=== PATIENT | male | born 1965 ===

== ENCOUNTER → 2021-06-12 13:47 | Outpatient (BNVA) | payer MEDICAID, SELFPAY | PROVIDERS: PCP Nurse Practitioner Family | DX: R32 Unspecified urinary incontinence (principal) | CPT/HCPCS: 99202 ==

== ENCOUNTER → 2021-07-24 12:16 | Outpatient (BNVA) | payer MEDICAID, SELFPAY | PROVIDERS: PCP Nurse Practitioner Family | DX: Z13.89 Encounter for screening for other disorder (principal) ==

== ENCOUNTER 2022-08-06 15:12 | Inpatient (IN) | payer MEDICAID, SELFPAY ==
--- NOTE | ~2022-08-06 | XR_ITS ---
EXAMINATION: XR CHEST CLINICAL INFORMATION: Fever COMPARISON: None available. TECHNIQUE: Frontal view of the chest was obtained. FINDINGS: The lungs are expanded with no acute consolidation pleural effusion. Heart size is enlarged with increased bilateral parahilar markings question mild congestion versus interstitial pneumonitis. No gross bony abnormality.. XR/XR chest 1V IMPRESSION: Mild cardiomegaly with increased bilateral parahilar interstitial markings question pneumonitis versus mild congestion. No acute consolidation seen.
--- NOTE | ~2022-08-06 | US_ITS ---
EXAMINATION: US SCROTUM CLINICAL INFORMATION: Abscess left side of scrotum. COMPARISON: None available. TECHNIQUE: A sonogram of the scrotum was performed assessing solis-scale appearance and color Doppler flow. Spectral Doppler analysis of the arterial and venous flow were performed in the testes bilaterally. FINDINGS: Scrotal wall on the left is thickened with 1.2 x 0.4 x 1.3 cm hypoechoic area seen in the scrotal wall a few millimeters below the skin surface. RIGHT: Right testicle measures 5.0 x 2.3 x 4.2 cm, volume 25 mL. Testis is very heterogeneous in echotexture but no discrete focal mass is seen. Spectral Doppler analysis of the arterial and venous flow is normal in the right testis. Right epididymal head is normal in size. The epididymal body is not well seen. No right hydrocele or varicocele is seen. Right epididymal Doppler flow is normal. LEFT: Left testicle measures 3.7 x 2.3 x 3.3 cm, volume 15 mL. The testis is very heterogeneous and echotexture but no discrete focal mass is seen. Spectral Doppler analysis of the arterial and venous flow is normal in the left testis. Left epididymal head is normal in size. Small cysts are present in the head of the left epididymis. The epididymal tail was not well seen. No left hydrocele or varicocele is seen. Left epididymal Doppler flow is normal. US/US scrotum IMPRESSION: 1. The testes are very heterogeneous in echotexture but no discrete mass is seen and they do not appear hyperemic. 2. The left scrotal wall is thickened with a 1.2 x 0.4 x 1.3 cm hypoechoic area in the scrotal wall. Given the history of an abscess, this certainly would be compatible with that diagnosis.
[2022-08-06 15:26] VITALS: BP 140/60; BP 142/64; PULSE 90; PULSE 94; RESP 19; TEMP 39.2; O2SAT 98; BMI 75.3
--- NOTE | 2022-08-06 16:13 | ED.GENADULT ---
HPI - General Adult General Chief complaint: Fever Stated complaint: CHRONIC CELLULITIS ABSCESS TO SCROTUM Time Seen by Provider: 08/06/22 15:58 Source: patient Mode of arrival: EMS Limitations: no limitations History of Present Illness HPI narrative: Patient comes to the emergency room by ambulance complaining of cellulitis in the right thigh an abscess on the scrotum on the left side. Patient states that he has had cellulitis multiple times in the thigh. Patient Usually goes to [facility]. Patient states that 2 days ago his right thigh started becoming erythematous, but was new to him, now he has an abscess on the scrotum which has never happened before. Patient complaining of severe pain, fever and chills. Related Data Home Medications Medication Instructions Recorded Confirmed atorvastatin 40 mg tablet 40 mg PO DAILY 06/12/21 08/06/22 clindamycin phosphate 1 % topical 1 appl topical DAILY 06/12/21 08/06/22 solution doxazosin 4 mg tablet 4 mg PO DAILY 06/12/21 08/06/22 furosemide 40 mg tablet 40 mg PO BID 06/12/21 08/06/22 gabapentin 800 mg tablet 800 mg PO TID 06/12/21 08/06/22 ipratropium 20 mcg-albuterol 100 1 puff PO QID wheezing 06/12/21 08/06/22 mcg/actuation mist for inhalation (Combivent Respimat) lisinopril 40 mg tablet 40 mg PO DAILY 06/12/21 08/06/22 tamsulosin 0.4 mg capsule 0.4 mg PO DAILY 06/12/21 08/06/22 amlodipine 10 mg tablet 10 mg PO DAILY 07/24/21 08/06/22 clonidine HCl 0.1 mg tablet 0.1 mg PO BID 07/24/21 08/06/22 ferrous sulfate 325 mg (65 mg 325 mg PO DAILY 07/24/21 08/06/22 iron) tablet (FeroSul) omeprazole 20 mg capsule,delayed 20 mg PO BID 07/24/21 08/06/22 release albuterol sulfate 2.5 mg/3 mL 2.5 mg inhalation TID 08/06/22 08/06/22 (0.083 %) solution for nebulization ammonium lactate 12 % topical cream 1 appl topical BID 08/06/22 08/06/22 cyanocobalamin (vitamin B-12) 1,000 mcg PO DAILY 08/06/22 08/06/22 1,000 mcg tablet ergocalciferol (vitamin D2) 1,250 1,250 mcg PO MO 08/06/22 08/06/22 mcg (50,000 unit) capsule levofloxacin 750 mg tablet 750 mg PO DAILY 08/06/22 08/06/22 oxycodone 10 mg tablet,crush 10 mg PO BID 08/06/22 08/06/22 resistant,extended release 12 hr (OxyContin) Previous Rx's Medication Instructions Recorded solifenacin 10 mg tablet (Vesicare) 10 mg PO DAILY #90 tabs 04/25/22 pyridoxine (vitamin B6) 50 mg 50 mg PO DAILY 30 days #30 tabs 06/25/22 tablet Allergies Allergy/AdvReac Type Severity Reaction Status Date / Time aspartame AdvReac Headache Verified 08/06/22 15:53 Review of Systems Review of Systems: Constitutional : No Weight loss, No Fever, No Chills, No Night Sweats, No Fatigue, No Malaise ENT/Mouth : No Hearing loss, No Ear Pain, No Nasal Congestion, No Sinus Pain, No Hoarseness, No sore throat, No Rhinorrhea, No Swallowing Difficulty Eyes: No Eye Pain, No Swelling, No Redness, No Foreign Body, No Discharge, No Vision Changes Cardiovascular : No Chest Pain, No SOB, No Dyspnea on Exertion, No Orthopnea, No Edema, No Palpitations Respiratory : No Cough, No Sputum, No Wheezing, No Smoke Exposure, No Dyspnea Gastrointestinal : No Nausea, No Vomiting, No Diarrhea, No Constipation, No abdominal Pain, No Hematochezia, No Melena Genitourinary : Patient complaining of a scrotal abscess, No Dysuria, No Urinary Frequency, No Hematuria, No Urinary Incontinence, No Urgency, No Flank Pain, No Urinary Flow Changes, No Hesitancy Musculoskeletal : No joint pain, No Myalgias, No Joint Swelling Skin : Complaining of right thigh cellulitis and left scrotal abscess Neuro : No Weakness, No Numbness, No Paresthesias, No Loss of Consciousness, No Dizziness, No Headache Psych : No Anxiety/Panic, No Depression, No SI/HI/AH/VH, No Social Issues, Heme/Lymph: No Bruising, No Bleeding,No Lymphadenopathy Endocrine : No Polyuria, No Polydipsia, No Temperature Intolerance [facility] Past Medical History Medical History (Updated 08/06/22 @ 16:29 by Lizzy Duarte MD) Frequency of urination and polyuria Morbid obesity Renal calculi Renal calculi Urinary incontinence Social History Social History Alcohol intake: never Smoked in Last 30 Days: No Use of substances other than those prescribed or required for medical reasons: No Advance Directives: Yes Advance Directives Information Provided: No Advance Directives on File: No Physical Exam ED Vital Signs: Vital Signs - 24 hr 08/06/22 15:26 08/06/22 17:19 08/06/22 18:26 Temperature 102.6 F H 101.4 F H 100 F Pulse Rate 94 88 Respiratory Rate 19 20 Blood Pressure 140/60 H 120/50 L Pulse Oximetry 98 95 Oxygen Delivery Method Nasal Cannula High Flow Nasal Cannula Oxygen Flow Rate 2 BMI result Body Mass Index 75.3 Const Other: Appearance: Alert. Oriented X3. No acute distress. Morbidly obese Eyes: Pupils equal, round and reactive to light. ENT: Pharynx normal. Neck: Normal inspection. Neck supple. No lymph nodes noted. No crepitus CVS: Normal heart rate and rhythm. Pulses normal. Normal S1 and S2 Respiratory: No respiratory distress. Breath sounds normal. No Wheezing. No rales Abdomen: Soft and nontender. No rigidity. No distention. Skin: Skin warm and dry. Normal skin color. Normal skin turgor. Right thigh is warm to touch, erythematous, extends to the inner thigh to the scrotum, there is an abscess with scant drainage on the left of the scrotum Extremities: No lower extremity edema. No Lacerations. No Rash Neuro: Oriented X 3. No motor deficit. No sensory deficit. Moving all extremities. No slurred speech. CN 2 through 12 grossly intact Psych: calm, cooperative, normal affect Medications Administered Generic Name Dose Route Start Last Admin Trade Name Freq PRN Reason Stop Dose Admin Morphine Sulfate 4 mg 08/06/22 20:24 08/06/22 20:52 Morphine Sulfate 4 Mg/Ml Cartridge IVPUSH 4 mg Q4H PRN Administration Pain, Severe (Pain Scale 7-10) Protocol Discontinued Medications Generic Name Dose Route Start Last Admin Trade Name Freq PRN Reason Stop Dose Admin Acetaminophen 975 mg 06/13/23 16:16 08/06/22 16:56 Acetaminophen 325 Mg Tablet PO 08/06/22 16:17 975 mg ONCE ONE Administration Hydromorphone HCl 1 mg 08/06/22 16:16 08/06/22 16:58 Hydromorphone Hcl 1 Mg/Ml Syringe IVPUSH 08/06/22 16:17 1 mg ONCE ONE Administration Protocol Sodium Chloride 1,000 mls @ 999 mls/hr 08/06/22 16:00 08/06/22 17:55 Ns IV 08/06/22 17:00 Infused .Q1H1M MARY ANN Infusion Sodium Chloride 3,000 mls @ 999 mls/hr 08/06/22 16:08 08/06/22 19:41 Ns IVCONT 08/06/22 19:08 Infused .Q3H1M ONE Infusion Piperacillin Sod/Tazobactam 50 mls @ 100 mls/hr 08/06/22 16:08 08/06/22 17:32 Sod 3.375 gm/ Sodium Chloride IV 08/06/22 16:37 Infused ONCE ONE Infusion Vancomycin HCl 2,000 mg in 500 mls @ 250 mls/hr 08/06/22 16:08 08/06/22 19:43 Vancomycin/Ns IV 08/06/22 18:07 Infused ONCE ONE Infusion Medical Decision Making Medical Decision Making MDM Narrative: -on arrival, it was noted that patient has fever 102.6, came in complaining of cellulitis and scrotal abscess. Patient was started empirically on IV fluids, 3 L, based on an ideal weight of 73 kg, patient is morbidly obese, also started on IV vancomycin and Zosyn. -All of patient's labs are pending. -parker's gangrene not suspected -ultrasound of the scrotum pending. We cannot obtain a CT scan, patient's way is above the maximum limit for CT scan -white blood cell count within normal limits, ultrasound of the scrotum shows a 1.2 x 0.4 x 1.3 cm hypoechoic area in the scrotal wall, could be an abscess. -Dr. White from Urology aware, will consult in the morning -I discussed the patient with Dr. Resendez, pt being admitted Admission/Observation Consideration of admission/observation: Escalation of care including admission/observation considered Consult Healthcare Provider Management of the patient was discussed with: Hospitalist and [place] Lab Data MDM Lab Attestation statement: I reviewed the patient's lab results. 08/06/22 16:31 08/06/22 16:22 Labs: Lab Results 08/06/22 08/06/22 08/06/22 Range/Units 16:21 16:21 16:22 WBC (4.8-10.8) X10*3/uL RBC (4.60-5.80) X10*6/uL Hgb (14.0-18.0) g/dl Hct (42.0-52.0) % MCV (80.0-98.0) fL MCH (27.0-33.0) pg MCHC (31.0-36.0) g/dl RDW (11.0-16.0) % Plt Count (160-400) X10*3/uL MPV (9.4-12.4) fL Immature Gran % (Auto) (0.0-0.4) % Neut % (Auto) (45-73) % Lymph % (Auto) (20-40) % [place] % (Auto) (2-11) % Eos % (Auto) (0-4) % Baso % (Auto) (0-2) % Lymph # (Auto) (1.2-4.9) X10*3/uL [place] # (Auto) (0.1-1.2) X10*3/uL Eos # (Auto) (0.0-0.4) X10*3/uL Baso # (Auto) (0.0-0.2) X10*3/uL Abs Immat Gran (auto) (0.00-0.03) X10*3/uL Absolute Neuts (auto) (2.0-8.3) x10*3/uL Absolute Nucleated RBC (0.0-0.012) X10*3/uL Nucleated RBC % (auto) (0.0-0.2) /100WBC Smear Tech's Comments PT (10.0-13.1) SEC INR (0.9-1.1) VBG pH (7.32-7.43) VBG pCO2 mmHg VBG pO2 mmHg VBG HCO3 (22-26) mmol/L VBG O2 Saturation % VBG Base Excess mmol/L Sodium 137 (135-145) mmol/L Potassium 4.0 (3.3-5.1) mmol/L Chloride 104 (96-108) mmol/L Carbon Dioxide 21 L (22-29) mmol/L Anion Gap 16 (12-20) BUN 15 (9-16) mg/dL Creatinine 1.08 (0.5-1.4) mg/dL Estim Creat Clear Calc 146.6 Estimated GFR > 60 Random Glucose 99 (60-115) mg/dL Lactic Acid 1.5 (0.5-2.0) mmol/L Calcium 9.2 (8.4-10.2) mg/dL Total Bilirubin 1.4 H (0.0-1.0) mg/dL Direct Bilirubin 0.7 H (0.0-0.5) mg/dL AST 22 (5-37) U/L ALT 16 (0-40) U/L Alkaline Phosphatase 170 H (39-117) U/L B-Natriuretic Peptide 72 (<100) pg/mL Total Protein 7.3 (6.5-8.0) g/dL Albumin 3.8 (3.5-5.0) g/dL Urine Color Urine Appearance Urine pH (5.0-9.0) Ur Specific [place] (1.005-1.025) Urine Protein (Neg-Trace) mg/dL Urine Glucose (UA) (Negative) mg/dL Urine Ketones (Negative) mg/dL Urine Blood (Negative) Urine Nitrite (Negative) Ur Leukocyte Esterase (Negative) Urine RBC (0-2) /HPF Urine WBC (0-5) /HPF Ur Squamous Epith Cells (0-2) /HPF Urine Bacteria (None Seen) Hyaline Casts (0-2) /LPF 08/06/22 08/06/22 08/06/22 Range/Units 16:22 16:31 16:38 WBC 9.3 (4.8-10.8) X10*3/uL RBC 3.80 L (4.60-5.80) X10*6/uL Hgb 10.6 L (14.0-18.0) g/dl Hct 33.4 L (42.0-52.0) % MCV 87.9 (80.0-98.0) fL MCH 27.9 (27.0-33.0) pg MCHC 31.7 (31.0-36.0) g/dl RDW 14.9 (11.0-16.0) % Plt Count 194 (160-400) X10*3/uL MPV 9.1 L (9.4-12.4) fL Immature Gran % (Auto) 0.4 (0.0-0.4) % Neut % (Auto) 94.6 H (45-73) % Lymph % (Auto) 2.6 L (20-40) % [place] % (Auto) 2.2 (2-11) % Eos % (Auto) 0.1 (0-4) % Baso % (Auto) 0.1 (0-2) % Lymph # (Auto) 0.2 L (1.2-4.9) X10*3/uL [place] # (Auto) 0.2 (0.1-1.2) X10*3/uL Eos # (Auto) 0.0 (0.0-0.4) X10*3/uL Baso # (Auto) 0.0 (0.0-0.2) X10*3/uL Abs Immat Gran (auto) 0.04 H (0.00-0.03) X10*3/uL Absolute Neuts (auto) 8.8 H (2.0-8.3) x10*3/uL Absolute Nucleated RBC 0.000 (0.0-0.012) X10*3/uL Nucleated RBC % (auto) 0.0 (0.0-0.2) /100WBC Smear Tech's Comments VERIFIED PT 13.3 H (10.0-13.1) SEC INR 1.2 H (0.9-1.1) VBG pH 7.42 (7.32-7.43) VBG pCO2 44 mmHg VBG pO2 43 mmHg VBG HCO3 29 H (22-26) mmol/L VBG O2 Saturation 71.0 % VBG Base Excess 4.5 mmol/L Sodium (135-145) mmol/L Potassium (3.3-5.1) mmol/L Chloride (96-108) mmol/L Carbon Dioxide (22-29) mmol/L Anion Gap (12-20) BUN (9-16) mg/dL Creatinine (0.5-1.4) mg/dL Estim Creat Clear Calc Estimated GFR Random Glucose (60-115) mg/dL Lactic Acid (0.5-2.0) mmol/L Calcium (8.4-10.2) mg/dL Total Bilirubin (0.0-1.0) mg/dL Direct Bilirubin (0.0-0.5) mg/dL AST (5-37) U/L ALT (0-40) U/L Alkaline Phosphatase (39-117) U/L B-Natriuretic Peptide (<100) pg/mL Total Protein (6.5-8.0) g/dL Albumin (3.5-5.0) g/dL Urine Color Urine Appearance Urine pH (5.0-9.0) Ur Specific [place] (1.005-1.025) Urine Protein (Neg-Trace) mg/dL Urine Glucose (UA) (Negative) mg/dL Urine Ketones (Negative) mg/dL Urine Blood (Negative) Urine Nitrite (Negative) Ur Leukocyte Esterase (Negative) Urine RBC (0-2) /HPF Urine WBC (0-5) /HPF Ur Squamous Epith Cells (0-2) /HPF Urine Bacteria (None Seen) Hyaline Casts (0-2) /LPF 08/06/22 Range/Units Unknown WBC (4.8-10.8) X10*3/uL RBC (4.60-5.80) X10*6/uL Hgb (14.0-18.0) g/dl Hct (42.0-52.0) % MCV (80.0-98.0) fL MCH (27.0-33.0) pg MCHC (31.0-36.0) g/dl RDW (11.0-16.0) % Plt Count (160-400) X10*3/uL MPV (9.4-12.4) fL Immature Gran % (Auto) (0.0-0.4) % Neut % (Auto) (45-73) % Lymph % (Auto) (20-40) % [place] % (Auto) (2-11) % Eos % (Auto) (0-4) % Baso % (Auto) (0-2) % Lymph # (Auto) (1.2-4.9) X10*3/uL [place] # (Auto) (0.1-1.2) X10*3/uL Eos # (Auto) (0.0-0.4) X10*3/uL Baso # (Auto) (0.0-0.2) X10*3/uL Abs Immat Gran (auto) (0.00-0.03) X10*3/uL Absolute Neuts (auto) (2.0-8.3) x10*3/uL Absolute Nucleated RBC (0.0-0.012) X10*3/uL Nucleated RBC % (auto) (0.0-0.2) /100WBC Smear Tech's Comments PT (10.0-13.1) SEC INR (0.9-1.1) VBG pH (7.32-7.43) VBG pCO2 mmHg VBG pO2 mmHg VBG HCO3 (22-26) mmol/L VBG O2 Saturation % VBG Base Excess mmol/L Sodium (135-145) mmol/L Potassium (3.3-5.1) mmol/L Chloride (96-108) mmol/L Carbon Dioxide (22-29) mmol/L Anion Gap (12-20) BUN (9-16) mg/dL Creatinine (0.5-1.4) mg/dL Estim Creat Clear Calc Estimated GFR Random Glucose (60-115) mg/dL Lactic Acid (0.5-2.0) mmol/L Calcium (8.4-10.2) mg/dL Total Bilirubin (0.0-1.0) mg/dL Direct Bilirubin (0.0-0.5) mg/dL AST (5-37) U/L ALT (0-40) U/L Alkaline Phosphatase (39-117) U/L B-Natriuretic Peptide (<100) pg/mL Total Protein (6.5-8.0) g/dL Albumin (3.5-5.0) g/dL Urine Color Yellow Urine Appearance Clear Urine pH 5.5 (5.0-9.0) Ur Specific [place] 1.015 (1.005-1.025) Urine Protein Trace (Neg-Trace) mg/dL Urine Glucose (UA) Negative (Negative) mg/dL Urine Ketones Negative (Negative) mg/dL Urine Blood Negative (Negative) Urine Nitrite Negative (Negative) Ur Leukocyte Esterase Moderate (2+) H (Negative) Urine RBC 0-2 (0-2) /HPF Urine WBC 0-5 (0-5) /HPF Ur Squamous Epith Cells 0-2 (0-2) /HPF Urine Bacteria None Seen (None Seen) Hyaline Casts 0-2 (0-2) /LPF Radiology Impression Discussion of test interpretation with radiology: I have reviewed the radiologist's reading. Radiologist Impression: RIGHT: Right testicle measures 5.0 x 2.3 x 4.2 cm, volume 25 mL. Testis is very heterogeneous in echotexture but no discrete focal mass is seen. Spectral Doppler analysis of the arterial and venous flow is normal in the right testis. Right epididymal head is normal in size. The epididymal body is not well seen. No right hydrocele or varicocele is seen. Right epididymal Doppler flow is normal. LEFT: Left testicle measures 3.7 x 2.3 x 3.3 cm, volume 15 mL. The testis is very heterogeneous and echotexture but no discrete focal mass is seen. Spectral Doppler analysis of the arterial and venous flow is normal in the left testis. Left epididymal head is normal in size. Small cysts are present in the head of the left epididymis. The epididymal tail was not well seen. No left hydrocele or varicocele is seen. Left epididymal Doppler flow is normal. US/US scrotum IMPRESSION: 1.? The testes are very heterogeneous in echotexture but no discrete mass is seen and they do not appear hyperemic. 2.? The left scrotal wall is thickened with a 1.2 x 0.4 x 1.3 cm hypoechoic area in the scrotal wall. Given the history of an abscess, this certainly would be compatible with that diagnosis. ? Critical Care Time Critical Care Time Critical Care Time: Yes Total Critical Care Time: 60 Attestation: I have personally provided critical care time. Time includes review of lab data, radiology results, discussion with consultants, and monitoring for potential decompensation. Intervention performed as documented. Discharge Plan Discharge Clinical Impression: Cellulitis, Scrotal abscess Patient Disposition: Admitted As Inpatient
[2022-08-06 16:38] LABS: Appearance Urine Clear; Color Urine Yellow; Glucose Urine UA Negative (Negative); Leukocyte Esterase Urine Moderate (2+) (Negative); Nitrite Urine Negative (Negative); PH 5.5 (5.0-9.0); Specific Gravity - Urine 1.015 (1.005-1.025); UMIC TRIGGER UACC YES; Urine Blood Negative (Negative); Urine Ketones Negative (Negative); Urine Protein Trace mg/dL (Neg-Trace)
[2022-08-06 16:42] LABS: Basophils Percent Auto 0.1 % (0-2); Eosinophils Percent Auto 0.1 % (0-4); Hematocrit 33.4 % (42.0-52.0); Hemoglobin 10.6 g/dl (14.0-18.0); Imm Gran Abs Auto 0.04 X10*3/uL (0.00-0.03); Imm Gran Pct Auto 0.4 % (0.0-0.4); Lymphocytes Absolute Auto 0.2 X10*3/uL (1.2-4.9); Lymphocytes Percent Auto 2.6 % (20-40); MANUAL DIFF FLAG SCAN; Mean Corpuscular HGB Conc 31.7 g/dl (31.0-36.0); Mean Corpuscular Hemoglobin 27.9 pg (27.0-33.0); Mean Corpuscular Volume 87.9 fL (80.0-98.0); Mean Platelet Volume 9.1 fL (9.4-12.4); Monocytes Absolute Auto 0.2 X10*3/uL (0.1-1.2); Monocytes Percent Auto 2.2 % (2-11); Neutrophils Absolute Auto 8.8 x10*3/uL (2.0-8.3); Neutrophils Percent Auto 94.6 % (45-73); Platelet Count 194 X10*3/uL (160-400); Red Cell Distribution Width 14.9 % (11.0-16.0); SCAN SMEAR FLAG 1; White Blood Count 9.3 X10*3/uL (4.8-10.8)
[2022-08-06 16:44] LABS: Lactic Acid 1.5 mmol/L (0.5-2.0)
[2022-08-06 16:45] LABS: VBG Base Excess 4.5 mmol/L; VBG HCO3 29 mmol/L (22-26); VBG pCO2 44 mmHg; VBG pH 7.42 (7.32-7.43); VBG pO2 43 mmHg
[2022-08-06 16:45] LABS: Venous Blood Gas Refer to POC result
[2022-08-06 16:46] LABS: INTERNATIONAL NORM RATIO 1.2 (0.9-1.1); Prothrombin Time 13.3 SEC (10.0-13.1)
--- NOTE | 2022-08-06 16:46 | PHA.MEDREC ---
Pharmacy Consult ? Medication Reconciliation Pharmacy has completed the medication reconciliation.
[2022-08-06] MEDS: 0.9 % Sodium Chloride 3,000 ML 999 ML IVCONT (16:47)
[2022-08-06] MEDS: 0.9 % Sodium Chloride 1,000 ML 999 ML IV (16:47)
[2022-08-06 16:49] LABS: Alanine Aminotransferase 16 U/L (0-40); Albumin Level 3.8 g/dL (3.5-5.0); Alkaline Phosphatase 170 U/L (39-117); Anion Gap 16 (12-20); Aspartate Amino Transferase 22 U/L (5-37); Bilirubin Direct 0.7 mg/dL (0.0-0.5); Bilirubin Total 1.4 mg/dL (0.0-1.0); Blood Urea Nitrogen 15 mg/dL (9-16); Calcium 9.2 mg/dL (8.4-10.2); Carbon Dioxide 21 mmol/L (22-29); Chloride 104 mmol/L (96-108); Creatinine Clr Calc Pharmacy 146.6; Estimated Glomerular Filt Rate > 60; Glucose Random 99 mg/dL (60-115); Sodium 137 mmol/L (135-145); Total Protein 7.3 g/dL (6.5-8.0)
[2022-08-06 16:54] LABS: B Type Natriuretic Peptide 72 pg/mL (<100)
[2022-08-06] MEDS: Acetaminophen 325 MG TABLET 975 MG PO (16:56)
[2022-08-06] MEDS: HYDROmorphone HCl 1 MG/ML SYRINGE IVPUSH (16:58)
[2022-08-06] MEDS: Piperacillin Sodium/Tazobactam 3.375 GM in 0.9 % Sodium Chloride 50 ML IV (16:59)
[2022-08-06 17:05] LABS: SLIDE REVIEW VERIFIED
[2022-08-06 17:19] VITALS: BP 120/50; PULSE 88; RESP 20; TEMP 38.6; O2SAT 95
[2022-08-06] MEDS: vancomycin/NS 2,000 MG/500 ML PLAST..BAG 250 MG IV (17:31)
[2022-08-06 17:46] LABS: Bacteria Urine None Seen (None Seen); Hyaline Casts Urine 0-2 /LPF (0-2); RBC Urine 0-2 /HPF (0-2); Squamous Epithelial Cell Urine 0-2 /HPF (0-2); WBC Urine 0-5 /HPF (0-5)
--- NOTE | 2022-08-06 18:12 | PC.NURSE ---
Pt c/o pain to bilateral lower extremities, Pain medication administered via 20G to left hand. Pt c/o discomfort r/t bedding, Pt repositioned with positive effect.
[2022-08-06 18:26] VITALS: TEMP 37.7
--- NOTE | 2022-08-06 20:29 | P.HPHOSP_ITS ---
History of Present Illness Date of Service: 08/06/22 Chief Complaint: cellulitis 56-year-old male with past medical history of recurrent cellulitis, CVA per patient, urinary incontinence,hypertension, hyperlipidemia, morbid obesity, reports chronic cellulitis of the lower extremity presents the hospital with c omplaints of cellulitis of the right leg as well as abscess in his scrotum. Patient reports that he has been on chronic antibiotics, but about 5 days ago his antibiotics were stopped because of fear of developing resistance as well as it wasnt working . he reports that about a day ago he was taking a shower when he noticed a lump in his scrotum and today he started developing significant pain swelling and redness in his right leg and he knew he has cellulitis therefore came to the hospital. He describes the pain as 10/10, not tolerating it well, feeling significant fever, he has chills, diaphoretic. denies any chest pain, no shortness of breath, no abdominal pain diarrhea constipation, no urinary symptoms no other acute abnormality or complaint. On arrival to the ED patient found to have a fever of 102.6, otherwise stable Labs are significant for WBC count of 9.3, labs otherwise unremarkable, scrotum ultrasound showed left scrotal wall thickening with 1.2x0.4x1.3 cm hypoechoic area in the scrotal wall patient started on IV antibiotics will be admitted for further management Review of Systems Review of Systems: Yes all other systems are reviewed and are negative [facility] Medical History (Updated 08/07/22 @ 06:41 by Payal Resendez MD) Frequency of urination and polyuria Hypertension Morbid obesity Renal calculi Renal calculi Urinary incontinence Social History Alcohol intake: never Smoked in Last 30 Days: No Use of substances other than those prescribed or required for medical reasons: No Advance Directives: Yes Advance Directives Information Provided: No Advance Directives on File: No Meds Allergies Allergy/AdvReac Type Severity Reaction Status Date / Time aspartame AdvReac Headache Verified 08/06/22 15:53 Active Medications: Current Medications Pharmacy Consult (Consult Rx Perform Med Rec) 1 each MISCELLANE ONCE PRN PRN Reason: Consult order Home Medications Medication Instructions Recorded Confirmed Last Taken Type atorvastatin 40 mg tablet 40 mg PO DAILY 06/12/21 08/06/22 08/06/22 History clindamycin phosphate 1 % topical 1 appl topical DAILY 06/12/21 08/06/22 Unknown History solution doxazosin 4 mg tablet 4 mg PO DAILY 06/12/21 08/06/22 08/06/22 History furosemide 40 mg tablet 40 mg PO BID 06/12/21 08/06/22 08/06/22 History gabapentin 800 mg tablet 800 mg PO TID 06/12/21 08/06/22 08/06/22 History ipratropium 20 mcg-albuterol 100 1 puff PO QID wheezing 06/12/21 08/06/22 Unknown History mcg/actuation mist for inhalation (Combivent Respimat) lisinopril 40 mg tablet 40 mg PO DAILY 06/12/21 08/06/22 08/06/22 History tamsulosin 0.4 mg capsule 0.4 mg PO DAILY 06/12/21 08/06/22 08/06/22 History amlodipine 10 mg tablet 10 mg PO DAILY 07/24/21 08/06/22 08/06/22 History clonidine HCl 0.1 mg tablet 0.1 mg PO BID 07/24/21 08/06/22 08/06/22 History ferrous sulfate 325 mg (65 mg 325 mg PO DAILY 07/24/21 08/06/22 08/06/22 History iron) tablet (FeroSul) omeprazole 20 mg capsule,delayed 20 mg PO BID 07/24/21 08/06/22 08/06/22 History release albuterol sulfate 2.5 mg/3 mL 2.5 mg inhalation TID 08/06/22 08/06/22 08/06/22 History (0.083 %) solution for nebulization ammonium lactate 12 % topical cream 1 appl topical BID 08/06/22 08/06/22 08/06/22 History cyanocobalamin (vitamin B-12) 1,000 mcg PO DAILY 08/06/22 08/06/22 08/06/22 History 1,000 mcg tablet ergocalciferol (vitamin D2) 1,250 1,250 mcg PO MO 08/06/22 08/06/22 08/05/22 History mcg (50,000 unit) capsule levofloxacin 750 mg tablet 750 mg PO DAILY 08/06/22 08/06/22 08/06/22 History oxycodone 10 mg tablet,crush 10 mg PO BID 08/06/22 08/06/22 08/06/22 History resistant,extended release 12 hr (OxyContin) Physical Exam Vital Signs and Narrative: Vital Signs: Last Vital Signs Temp 100 F 08/06/22 18:26 Pulse 88 08/06/22 17:19 Resp 20 08/06/22 17:19 BP 120/50 L 08/06/22 17:19 Pulse Ox 95 08/06/22 17:19 O2 Del Method High Flow Nasal C annula 08/06/22 17:19 O2 Flow Rate 2 08/06/22 17:19 BMI result Body Mass Index 75.3 Const: Other: very difficult to conduct a complete exam as patient is morbidly obese General: cooperative and no acute distress Orientation/consciousness: patient oriented x3 Eyes: General: appearance normal, both eyes and all related structures Resp: Effort & Inspection: normal respiratory effort Cardio: Rate: regular rate Rhythm: regular rhythm GI: Palpation (GI): Soft to palpation Auscultation: normal bowel sounds Skin: General skin exam: no rashes or lesions noted Neuro: General: patient oriented x3 Cognition (Neuro): normal cognition Extrem: Other: right lower extremity, around the groin/ thigh region there is erythema, warmth, significant tenderness and minimal touch around the scrotum there is also erythema warmth, tenderness, as well as edema General: Yes normal to inspection and Yes no pedal edema Results Labs 08/06/22 16:31 08/06/22 16:22 Labs: Laboratory Results - last 24 hr 08/06/22 08/06/22 08/06/22 16:21 16:21 16:22 MCV MCH MCHC RDW Plt Count MPV Immature Gran % (Auto) Neut % (Auto) Lymph % (Auto) [place] % (Auto) Eos % (Auto) Baso % (Auto) Lymph # (Auto) [place] # (Auto) Eos # (Auto) Baso # (Auto) Abs Immat Gran (auto) Absolute Neuts (auto) Absolute Nucleated RBC Nucleated RBC % (auto) Smear Tech's Comments PT INR VBG pH VBG pCO2 VBG pO2 VBG HCO3 VBG O2 Saturation VBG Base Excess Anion Gap 16 Estim Creat Clear Calc 146.6 Estimated GFR > 60 Random Glucose 99 Lactic Acid 1.5 Calcium 9.2 Total Bilirubin 1.4 H Direct Bilirubin 0.7 H AST 22 ALT 16 Alkaline Phosphatase 170 H B-Natriuretic Peptide 72 Total Protein 7.3 Albumin 3.8 Urine Color Urine Appearance Urine pH Ur Specific [place] Urine Protein Urine Glucose (UA) Urine Ketones Urine Blood Urine Nitrite Ur Leukocyte Esterase Urine RBC Urine WBC Ur Squamous Epith Cells Urine Bacteria Hyaline Casts 08/06/22 08/06/22 08/06/22 16:22 16:31 16:38 MCV 87.9 MCH 27.9 MCHC 31.7 RDW 14.9 Plt Count 194 MPV 9.1 L Immature Gran % (Auto) 0.4 Neut % (Auto) 94.6 H Lymph % (Auto) 2.6 L [place] % (Auto) 2.2 Eos % (Auto) 0.1 Baso % (Auto) 0.1 Lymph # (Auto) 0.2 L [place] # (Auto) 0.2 Eos # (Auto) 0.0 Baso # (Auto) 0.0 Abs Immat Gran (auto) 0.04 H Absolute Neuts (auto) 8.8 H Absolute Nucleated RBC 0.000 Nucleated RBC % (auto) 0.0 Smear Tech's Comments VERIFIED PT 13.3 H INR 1.2 H VBG pH 7.42 VBG pCO2 44 VBG pO2 43 VBG HCO3 29 H VBG O2 Saturation 71.0 VBG Base Excess 4.5 Anion Gap Estim Creat Clear Calc Estimated GFR Random Glucose Lactic Acid Calcium Total Bilirubin Direct Bilirubin AST ALT Alkaline Phosphatase B-Natriuretic Peptide Total Protein Albumin Urine Color Urine Appearance Urine pH Ur Specific [place] Urine Protein Urine Glucose (UA) Urine Ketones Urine Blood Urine Nitrite Ur Leukocyte Esterase Urine RBC Urine WBC Ur Squamous Epith Cells Urine Bacteria Hyaline Casts 08/06/22 Unknown MCV MCH MCHC RDW Plt Count MPV Immature Gran % (Auto) Neut % (Auto) Lymph % (Auto) [place] % (Auto) Eos % (Auto) Baso % (Auto) Lymph # (Auto) [place] # (Auto) Eos # (Auto) Baso # (Auto) Abs Immat Gran (auto) Absolute Neuts (auto) Absolute Nucleated RBC Nucleated RBC % (auto) Smear Tech's Comments PT INR VBG pH VBG pCO2 VBG pO2 VBG HCO3 VBG O2 Saturation VBG Base Excess Anion Gap Estim Creat Clear Calc Estimated GFR Random Glucose Lactic Acid Calcium Total Bilirubin Direct Bilirubin AST ALT Alkaline Phosphatase B-Natriuretic Peptide Total Protein Albumin Urine Color Yellow Urine Appearance Clear Urine pH 5.5 Ur Specific [place] 1.015 Urine Protein Trace Urine Glucose (UA) Negative Urine Ketones Negative Urine Blood Negative Urine Nitrite Negative Ur Leukocyte Esterase Moderate (2+) H Urine RBC 0-2 Urine WBC 0-5 Ur Squamous Epith Cells 0-2 Urine Bacteria None Seen Hyaline Casts 0-2 Imaging Radiologist's Impressions: Impressions Chest X-Ray 08/06/22 16:10 IMPRESSION: Mild cardiomegaly with increased bilateral parahilar interstitial markings question pneumonitis versus mild congestion. No acute consolidation seen. Scrotum Ultrasound 08/06/22 17:44 IMPRESSION: 1. The testes are very heterogeneous in echotexture but no discrete mass is seen and they do not appear hyperemic. 2. The left scrotal wall is thickened with a 1.2 x 0.4 x 1.3 cm hypoechoic area in the scrotal wall. Given the history of an abscess, this certainly would be compatible with that diagnosis. Assessment and Plan (1) Cellulitis of right lower extremity: Status: Acute (2) Scrotal abscess: Status: Acute Plan 57-year-old male past medical history of chronic cellulitis of right lower extremity, history of scrotal abscess presents the hospital with complaints of acute cellulitis in the same region # acute cellulitis of right lower extremity - will treat with IV antibiotics - follow cultures - infectious disease consult # scrotal abscess - will treat with IV antibiotics - urology consult # hypertension - stable - continue antihypertensives DVT prophylaxis: Heparin Time Spent With Patient Time: Total time managing care of this patient today ____ minutes. Quality Stroke Does the patient have a stroke diagnosis?: No VTE Prior VTE?: No VTE Risk Level:: Medical - moderate - high VTE Device Contraindication: Treatment Not Indicated VTE Drug Contraindication: N/A - Med Ordered
[2022-08-06] MEDS: Morphine Sulfate 4 MG/ML CARTRIDGE IVPUSH (20:52)
[2022-08-06 21:00] LABS: Appearance Urine Clear; Color Urine Dark Yellow; Glucose Urine UA Negative (Negative); Leukocyte Esterase Urine Small (1+) (Negative); Nitrite Urine Negative (Negative); PH 5.5 (5.0-9.0); Specific Gravity - Urine 1.025 (1.005-1.025); UMIC TRIGGER UACC YES; Urine Blood Negative (Negative); Urine Ketones Trace mg/dL (Negative); Urine Protein Trace mg/dL (Neg-Trace)
--- NOTE | 2022-08-06 21:10 | PHA.PROG ---
Admission Date/Time: Indication: Weight in k.136 kg Adjusted body weight in K.054 [place] body weight in K Obesity Dosing Indication % IBW: 75.3 Serum Creatinine - Last 168 Hours 08/06/22 16:22 Creatinine 1.08 Estimated CrCl and GFR - Last 168 Hours 08/06/22 16:22 Estim Creat Clear Calc 146.6 Estimated GFR > 60 Vancomycin Loading Dose: 2000 MG Current Vancomycin Dosing Regimen: 1250 Q12 Vancomycin Monitoring using AUC goal of 400 - 600 range with trough as surrogate marker: AUC 549 TROUGH 15.4 AFTER 4TH DOSE Date and Time for next Vancomycin Level to be drawn: CHECK RANDOM BEFORE 3RD DOSE 08/07/22 @1500 Pharmacist Comments on Vancomycin Plan: GIVEN PATIENT WEIGHT IT IS NOT CERTAIN THAT INSIGHT WILL ACCURATELY PREDICT LEVEL AND TO ENSURE SAFETY AND EFFICACY WE WILL CHECK LEVEL BEFORE 3RD DOSE AND CONTINUE DAILY MONITORING OF RENAL FUNCTION. RENAL FUNCTION GOOD AT THIS TIME. OBESE MODEL BEING USED IN INSIGHT MODEL. Vancomycin dosing will take advantage of [employer] as a clinical decision support tool that uses Bayesian modeling to calculate individual patient's pharmacokinetic parameters and forecast the patient's drug concentration time course with the target goal AUC 24 range of 400 - 600 mg/L/hr.
[2022-08-06 21:17] LABS: Bacteria Urine None Seen (None Seen); Hyaline Casts Urine 0-2 /LPF (0-2); RBC Urine 0-2 /HPF (0-2); UACC Culture Trigger YES; WBC Urine 0-5 /HPF (0-5)
[2022-08-06] MEDS: Heparin Sodium,Porcine 5,000 UNIT/ML VIAL 5000 UNIT SUBCUT (21:27)
[2022-08-06] MEDS: oxyCODONE HCl Immed Release 5 MG TABLET PO (21:30)
--- NOTE | 2022-08-06 21:36 | PC.NURSE ---
pt assessed, repositioned for comfort, medicated with pain medications to help with chronic pain
--- NOTE | 2022-08-06 22:27 | MHC.CM.PN ---
Pt sleeping soundly with CPAP. Unable to complete CM assessment. Will attempt when patient wakes.
[2022-08-06 22:41] VITALS: RESP 16
[2022-08-07] MEDS: Morphine Sulfate 4 MG/ML CARTRIDGE IVPUSH ×4 (01:17→21:18)
--- NOTE | 2022-08-07 01:21 | PC.NURSE ---
pt reported 10/10 pain, medicated with 4mg of morphine ivp
[2022-08-07 01:59] VITALS: BP 106/49; PULSE 59; RESP 17; TEMP 37.2; O2SAT 95
[2022-08-07] MEDS: Piperacillin Sodium/Tazobactam 3.375 GM in 0.9 % Sodium Chloride 50 ML IV ×4 (02:40→20:29)
[2022-08-07] MEDS: vancomycin HCL 1,250 MG in 0.9 % Sodium Chloride 250 ML 166.67 MG IV (04:39)
[2022-08-07] MEDS: oxyCODONE HCl Immed Release 5 MG TABLET PO ×2 (04:39→14:23)
[2022-08-07] MEDS: Heparin Sodium,Porcine 5,000 UNIT/ML VIAL 5000 UNIT SUBCUT ×2 (04:40→20:29)
[2022-08-07 05:52] VITALS: BP 99/48; PULSE 50; RESP 20; TEMP 37.2; O2SAT 98
[2022-08-07 06:31] LABS: MANUAL DIFF FLAG NO
[2022-08-07 07:00] LABS: Anion Gap 9 (12-20); Blood Urea Nitrogen 18 mg/dL (9-16); Calcium 8.3 mg/dL (8.4-10.2); Carbon Dioxide 24 mmol/L (22-29); Chloride 107 mmol/L (96-108); Creatinine Clr Calc Pharmacy 128.2; Estimated Glomerular Filt Rate > 60; Glucose Random 95 mg/dL (60-115); Potassium 4.4 mmol/L (3.3-5.1); Sodium 136 mmol/L (135-145)
[2022-08-07 07:10] LABS: Basophils Percent Auto 0.2 % (0-2); Eosinophils Absolute Auto 0.1 X10*3/uL (0.0-0.4); Eosinophils Percent Auto 0.7 % (0-4); Hematocrit 27.3 % (42.0-52.0); Hemoglobin 8.7 g/dl (14.0-18.0); Imm Gran Abs Auto 0.06 X10*3/uL (0.00-0.03); Imm Gran Pct Auto 0.6 % (0.0-0.4); Lymphocytes Absolute Auto 0.7 X10*3/uL (1.2-4.9); Lymphocytes Percent Auto 6.5 % (20-40); Mean Corpuscular HGB Conc 31.9 g/dl (31.0-36.0); Mean Corpuscular Hemoglobin 28.1 pg (27.0-33.0); Mean Corpuscular Volume 88.1 fL (80.0-98.0); Mean Platelet Volume 9.8 fL (9.4-12.4); Monocytes Absolute Auto 0.3 X10*3/uL (0.1-1.2); Monocytes Percent Auto 2.5 % (2-11); Neutrophils Absolute Auto 8.9 x10*3/uL (2.0-8.3); Neutrophils Percent Auto 89.5 % (45-73); Red Cell Distribution Width 15.1 % (11.0-16.0)
[2022-08-07 07:12] LABS: Platelet Count 115 X10*3/uL (160-400)
[2022-08-07] MEDS: Tolterodine Tartrate LA 4 MG CAP.ER.24H PO (08:55)
[2022-08-07] MEDS: Ferrous Sulfate 324 MG TABLET.DR PO (08:55)
[2022-08-07] MEDS: oxyCODONE HCl ER 10 MG TAB.ER.12H PO ×2 (08:56→20:28)
[2022-08-07] MEDS: Doxazosin Mesylate 2 MG TABLET 4 MG PO (08:57)
[2022-08-07] MEDS: Omeprazole 20 MG CAPSULE.DR PO ×2 (08:57→20:28)
[2022-08-07] MEDS: Pyridoxine HCl (Vitamin B6) 50 MG TABLET PO (08:57)
[2022-08-07] MEDS: Tamsulosin HCL 0.4 MG CAPSULE PO (08:57)
[2022-08-07] MEDS: Gabapentin 400 MG CAPSULE 800 MG PO ×3 (08:57→20:28)
[2022-08-07] MEDS: Cyanocobalamin (Vitamin B-12) 1,000 MCG TABLET 1000 MCG PO (08:57)
[2022-08-07] MEDS: 0.9 % Sodium Chloride Flush 3 ML SYRINGE IVFLUSH ×2 (08:57→20:30)
[2022-08-07] MEDS: Atorvastatin Calcium 40 MG TABLET PO (08:57)
[2022-08-07 09:08] VITALS: BP 134/61; PULSE 90; RESP 18; TEMP 36.4; O2SAT 95
--- NOTE | 2022-08-07 11:51 | MHC.CM.PN ---
pt lives alone has pce hrs morning and evening 7 days a week he will need amb ride home pcp is dr natty guy [place] pt has an electric w/c ,uses a walker and a cane
--- NOTE | 2022-08-07 12:51 | P.PNIM_ITS ---
Subjective Subjective Date of Service: 08/07/22 Interval History: cellulitis /sacrotal abcess Review of Systems fevers yesterday , no new episode today scrotal swellin/erythema present Physical Exam Vital Signs: Vital Signs: Last Vital Signs Temp 97.5 F 08/07/22 09:08 Pulse 90 08/07/22 09:08 Resp 18 08/07/22 09:08 BP 134/61 08/07/22 09:08 Pulse Ox 95 08/07/22 09:08 O2 Del Method Room Air 08/07/22 09:08 O2 Flow Rate 2 08/06/22 17:19 BMI result Body Mass Index 75.3 Appearance: Alert.? Oriented X3.? not in distress.? cvs: rrr, [id number] , no murmur res: clear to auscultation ,no rhonchii or wheezing abd: no rebound or guarding ,nt, bs present. ext : right lower extremity, around the groin/ thigh region there is erythema, warmth, significant tenderness and minimal touch ?around the scrotum there is also erythema warmth, tenderness, as well as edema. neuro: axo3 , nonfocal. Objective Data Active Medications Acetaminophen (Acetaminophen 325 Mg Tablet) 650 mg PO Q6H PRN PRN Reason: Pain, Mild (Pain Scale 1-3) Albuterol Sulfate (Albuterol Sulfate (0.083%) 2.5 Mg/3 Ml Vial.Neb) 2.5 mg INHALE TID [facility] Last Admin: 08/07/22 07:59 Dose: Not Given Documented By: NARENDRA Non-Admin Reason: Patient Refused Albuterol/Ipratropium (Albuterol/Iprat 2.5/0.5mg 3 Ml Ampul.Neb) 3 ml INHALE Q6H [facility] Last Admin: 08/07/22 07:59 Dose: Not Given Documented By: NARENDRA Non-Admin Reason: Patient Refused Atorvastatin Calcium (Atorvastatin Calcium 40 Mg Tablet) 40 mg PO DAILY [facility] Last Admin: 08/07/22 08:57 Dose: 40 mg Documented By: MAHI Cyanocobalamin (Cyanocobalamin (Vitamin B-12) 1,000 Mcg Tablet) 1,000 mcg PO DAILY [facility] Last Admin: 08/07/22 08:57 Dose: 1,000 mcg Documented By: MAHI Docusate Sodium (Docusate Sodium 100 Mg Capsule) 100 mg PO DAILY PRN PRN Reason: Constipation Doxazosin Mesylate (Doxazosin Mesylate 2 Mg Tablet) 4 mg PO DAILY [facility]; Protocol Last Admin: 08/07/22 08:57 Dose: 4 mg Documented By: MAHI Ergocalciferol (Ergocalciferol (Vitamin D2) 1,250 Mcg Capsule) 1,250 mcg PO MO [facility] Ferrous Sulfate (Ferrous Sulfate 324 Mg Tablet.) 324 mg PO DAILY [facility] Last Admin: 08/07/22 08:55 Dose: 324 mg Documented By: MAHI Gabapentin (Gabapentin 400 Mg Capsule) 800 mg PO TID [facility] Last Admin: 08/07/22 08:57 Dose: 800 mg Documented By: MAHI Heparin Sodium (Porcine) (Heparin Sodium,Porcine 5,000 Unit/Ml Vial) 5,000 unit SUBCUT Q8H [facility] Last Admin: 08/07/22 04:40 Dose: 5,000 unit Documented By: BECCA Piperacillin Sod/Tazobactam (Sod 3.375 gm/ Sodium Chloride) 50 mls @ 100 mls/hr IV Q6H [facility] Last Infusion: 08/07/22 09:56 Dose: 0 mls/hr Documented By: MAHI Vancomycin HCl 1,250 mg/ (Sodium Chloride) 250 mls @ 166.667 mls/hr IV Q12H [facility] Last Infusion: 08/07/22 06:27 Dose: 0 mls/hr Documented By: BECCA Lactic Acid (Ammonium Lactate 12 % Cream 140 Gm Tube) 1 appl TOPICAL BID [facility]; Protocol Morphine Sulfate (Morphine Sulfate 4 Mg/Ml Cartridge) 4 mg IVPUSH Q4H PRN; Protocol PRN Reason: Pain, Severe (Pain Scale 7-10) Last Admin: 08/07/22 09:56 Dose: 4 mg Documented By: MAHI Omeprazole (Omeprazole 20 Mg Capsule.) 20 mg PO BID [facility] Last Admin: 08/07/22 08:57 Dose: 20 mg Documented By: MAHI Ondansetron HCl (Ondansetron Hcl 4 Mg/2 Ml Vial) 4 mg IVPUSH Q8H PRN PRN Reason: Nausea and Vomiting Oxycodone HCl (Oxycodone Hcl Immed Release 5 Mg Tablet) 5 mg PO Q3H PRN PRN Reason: Pain, Moderate(Pain Scale 4-6) Last Admin: 08/07/22 04:39 Dose: 5 mg Documented By: BECCA Oxycodone HCl (Oxycodone Hcl Er 10 Mg Tab.Er.12h) 10 mg PO BID [facility] Last Admin: 08/07/22 08:56 Dose: 10 mg Documented By: MAHI Pharmacy Consult (Consult Rx Perform Med Rec) 1 each MISCELLANE ONCE PRN PRN Reason: Consult order Pharmacy Consult (Consult Rx Vancomycin Dosing) 1 each MISCELLANE DAILY PRN PRN Reason: Consult order Pyridoxine HCl (Pyridoxine Hcl (Vitamin B6) 50 Mg Tablet) 50 mg PO DAILY [facility] Last Admin: 08/07/22 08:57 Dose: 50 mg Documented By: MAHI Sodium Chloride (0.9 % Sodium Chloride Flush 3 Ml Syringe) 3 ml IVFLUSH QSHIFT [facility] Last Admin: 08/07/22 08:57 Dose: 3 ml Documented By: MAHI Tamsulosin HCl (Tamsulosin Hcl 0.4 Mg Capsule) 0.4 mg PO DAILY [facility] Last Admin: 08/07/22 08:57 Dose: 0.4 mg Documented By: MAHI Tolterodine Tartrate (Tolterodine Tartrate [place] 4 Mg Cap.Er.24h) 4 mg PO DAILY [facility] Last Admin: 08/07/22 08:55 Dose: 4 mg Documented By: MAHI Labs 08/07/22 06:26 08/07/22 06:26 Labs: Laboratory Results - last 24 hr 08/06/22 08/06/22 08/06/22 16:21 16:21 16:22 MCV MCH MCHC RDW Plt Count MPV Immature Gran % (Auto) Neut % (Auto) Lymph % (Auto) [place] % (Auto) Eos % (Auto) Baso % (Auto) Lymph # (Auto) [place] # (Auto) Eos # (Auto) Baso # (Auto) Abs Immat Gran (auto) Absolute Neuts (auto) Absolute Nucleated RBC Nucleated RBC % (auto) Smear Tech's Comments PT INR VBG pH VBG pCO2 VBG pO2 VBG HCO3 VBG O2 Saturation VBG Base Excess Anion Gap 16 Estim Creat Clear Calc 146.6 Estimated GFR > 60 Random Glucose 99 Lactic Acid 1.5 Calcium 9.2 Total Bilirubin 1.4 H Direct Bilirubin 0.7 H AST 22 ALT 16 Alkaline Phosphatase 170 H B-Natriuretic Peptide 72 Total Protein 7.3 Albumin 3.8 Urine Color Urine Appearance Urine pH Ur Specific [place] Urine Protein Urine Glucose (UA) Urine Ketones Urine Blood Urine Nitrite Ur Leukocyte Esterase Urine RBC Urine WBC Ur Squamous Epith Cells Urine Bacteria Hyaline Casts 08/06/22 08/06/22 08/06/22 16:22 16:31 16:38 MCV 87.9 MCH 27.9 MCHC 31.7 RDW 14.9 Plt Count 194 MPV 9.1 L Immature Gran % (Auto) 0.4 Neut % (Auto) 94.6 H Lymph % (Auto) 2.6 L [place] % (Auto) 2.2 Eos % (Auto) 0.1 Baso % (Auto) 0.1 Lymph # (Auto) 0.2 L [place] # (Auto) 0.2 Eos # (Auto) 0.0 Baso # (Auto) 0.0 Abs Immat Gran (auto) 0.04 H Absolute Neuts (auto) 8.8 H Absolute Nucleated RBC 0.000 Nucleated RBC % (auto) 0.0 Smear Tech's Comments VERIFIED PT 13.3 H INR 1.2 H VBG pH 7.42 VBG pCO2 44 VBG pO2 43 VBG HCO3 29 H VBG O2 Saturation 71.0 VBG Base Excess 4.5 Anion Gap Estim Creat Clear Calc Estimated GFR Random Glucose Lactic Acid Calcium Total Bilirubin Direct Bilirubin AST ALT Alkaline Phosphatase B-Natriuretic Peptide Total Protein Albumin Urine Color Urine Appearance Urine pH Ur Specific [place] Urine Protein Urine Glucose (UA) Urine Ketones Urine Blood Urine Nitrite Ur Leukocyte Esterase Urine RBC Urine WBC Ur Squamous Epith Cells Urine Bacteria Hyaline Casts 08/06/22 08/06/22 08/07/22 20:33 Unknown 06:26 MCV MCH MCHC RDW Plt Count MPV Immature Gran % (Auto) Neut % (Auto) Lymph % (Auto) [place] % (Auto) Eos % (Auto) Baso % (Auto) Lymph # (Auto) [place] # (Auto) Eos # (Auto) Baso # (Auto) Abs Immat Gran (auto) Absolute Neuts (auto) Absolute Nucleated RBC Nucleated RBC % (auto) Smear Tech's Comments PT INR VBG pH VBG pCO2 VBG pO2 VBG HCO3 VBG O2 Saturation VBG Base Excess Anion Gap 9 L Estim Creat Clear Calc 128.2 Estimated GFR > 60 Random Glucose 95 Lactic Acid Calcium 8.3 L D Total Bilirubin Direct Bilirubin AST ALT Alkaline Phosphatase B-Natriuretic Peptide Total Protein Albumin Urine Color Dark Yellow Yellow Urine Appearance Clear Clear Urine pH 5.5 5.5 Ur Specific [place] 1.025 1.015 Urine Protein Trace Trace Urine Glucose (UA) Negative Negative Urine Ketones Trace Negative Urine Blood Negative Negative Urine Nitrite Negative Negative Ur Leukocyte Esterase Small (1+) H Moderate (2+) H Urine RBC 0-2 0-2 Urine WBC 0-5 0-5 Ur Squamous Epith Cells 3-5 0-2 Urine Bacteria None Seen None Seen Hyaline Casts 0-2 0-2 08/07/22 06:26 MCV 88.1 MCH 28.1 MCHC 31.9 RDW 15.1 Plt Count 115 L D MPV 9.8 Immature Gran % (Auto) 0.6 H Neut % (Auto) 89.5 H Lymph % (Auto) 6.5 L [place] % (Auto) 2.5 Eos % (Auto) 0.7 Baso % (Auto) 0.2 Lymph # (Auto) 0.7 L [place] # (Auto) 0.3 Eos # (Auto) 0.1 Baso # (Auto) 0.0 Abs Immat Gran (auto) 0.06 H Absolute Neuts (auto) 8.9 H Absolute Nucleated RBC 0.000 Nucleated RBC % (auto) 0.0 Smear Tech's Comments PT INR VBG pH VBG pCO2 VBG pO2 VBG HCO3 VBG O2 Saturation VBG Base Excess Anion Gap Estim Creat Clear Calc Estimated GFR Random Glucose Lactic Acid Calcium Total Bilirubin Direct Bilirubin AST ALT Alkaline Phosphatase B-Natriuretic Peptide Total Protein Albumin Urine Color Urine Appearance Urine pH Ur Specific [place] Urine Protein Urine Glucose (UA) Urine Ketones Urine Blood Urine Nitrite Ur Leukocyte Esterase Urine RBC Urine WBC Ur Squamous Epith Cells Urine Bacteria Hyaline Casts Microbiology Microbiology Results: Microbiology 08/06/22 20:33 Urine Culture - Preliminary Urine Catheterized - Villalobos Catheter No growth to date. Assessment and Plan (1) Cellulitis of right lower extremity: Status: Acute (2) Cellulitis: Status: Acute (3) Scrotal abscess: Status: Acute Plan 57-year-old male past medical history of chronic cellulitis of right lower ex tremity, history of scrotal abscess presents the hospital with complaints of acute cellulitis in the same region ? acute cellulitis of right lower extremity-? will treat with IV antibiotics, follow cultures infectious disease consult ? scrotal abscess-? will treat with IV antibiotics urology consult ? hypertension-?boderline hold antihypertensives ?DVT prophylaxis:? Heparin inaptient need : acute cellulitis / scrotal abscess-need iv antibiotics,cultures ,urology eval . Time Spent With Patient Time: Total time managing care of this patient today ____ minutes. Quality Stroke Does the patient have a stroke diagnosis?: No VTE Prior VTE?: No VTE Risk Level:: Medical - moderate - high VTE Device Contraindication: Treatment Not Indicated VTE Drug Contraindication: N/A - Med Ordered
--- NOTE | 2022-08-07 13:38 | P.CNUR_ITS ---
History of Present Illness Consult details Consult date: 08/07/22 Narrative: 56-year-old male with past medical history of recurrent cellulitis, CVA per patient, hypertension, hyperlipidemia, morbid obesity, reports chronic? cellulitis of the lower extremity presents the hospital with complaints of cellulitis of the right leg as well as abscess in his scrotum.? Patient reports that he has been on chronic antibiotics, but about 5 days ago his antibiotics were stopped because of fear of developing resistance. On arrival to the ED patient found to have a fever of 102.6, also he had chills, in the ED denies any chest pain, no shortness of breath, no abdominal pain diarrhea constipation. ?At home pt states voids frequently about every hour and used pads. He states he has assistance at home with activities of daily living. Labs are significant for WBC count of 9.3, ?scrotum ultrasound showed? left scrotal wall? thickening with 1.2x0.4x1.3 cm hypoechoic area in the scrotal wall. On exam- Scrotum mild swelling, indurated area superior portion of left side of scrotum, mild tenderness, no fluctuance palpated. [facility] Past Medical History Medical History Frequency of urination and polyuria Hypertension Morbid obesity Renal calculi Renal calculi Urinary incontinence Social History Social History Household Members: None Housing: Apartment Do you presently have visiting nurse or other home services: Yes ([employer] and VNA) Alcohol intake: never Patient Tobacco Use Status: Former Tobacco user Quit Date: four years ago Years Smoked: 30 Substance Use Type: Marijuana service: No Meds Allergies Allergy/AdvReac Type Severity Reaction Status Date / Time aspartame AdvReac Headache Verified 08/06/22 15:53 Active Medications: Current Medications Acetaminophen (Acetaminophen 325 Mg Tablet) 650 mg PO Q6H PRN PRN Reason: Pain, Mild (Pain Scale 1-3) Albuterol Sulfate (Albuterol Sulfate (0.083%) 2.5 Mg/3 Ml Vial.Neb) 2.5 mg INHALE TID MARY ANN Last Admin: 08/07/22 07:59 Dose: Not Given Albuterol/Ipratropium (Albuterol/Iprat 2.5/0.5mg 3 Ml Ampul.Neb) 3 ml INHALE Q6H [facility] Last Admin: 08/07/22 07:59 Dose: Not Given Atorvastatin Calcium (Atorvastatin Calcium 40 Mg Tablet) 40 mg PO DAILY [facility] Last Admin: 08/07/22 08:57 Dose: 40 mg Cyanocobalamin (Cyanocobalamin (Vitamin B-12) 1,000 Mcg Tablet) 1,000 mcg PO DAILY [facility] Last Admin: 08/07/22 08:57 Dose: 1,000 mcg Docusate Sodium (Docusate Sodium 100 Mg Capsule) 100 mg PO DAILY PRN PRN Reason: Constipation Doxazosin Mesylate (Doxazosin Mesylate 2 Mg Tablet) 4 mg PO DAILY [facility]; Protocol Last Admin: 08/07/22 08:57 Dose: 4 mg Ergocalciferol (Ergocalciferol (Vitamin D2) 1,250 Mcg Capsule) 1,250 mcg PO MO [facility] Ferrous Sulfate (Ferrous Sulfate 324 Mg Tablet.) 324 mg PO DAILY [facility] Last Admin: 08/07/22 08:55 Dose: 324 mg Gabapentin (Gabapentin 400 Mg Capsule) 800 mg PO TID [facility] Last Admin: 08/07/22 08:57 Dose: 800 mg Heparin Sodium (Porcine) (Heparin Sodium,Porcine 5,000 Unit/Ml Vial) 5,000 unit SUBCUT Q8H [facility] Last Admin: 08/07/22 04:40 Dose: 5,000 unit Piperacillin Sod/Tazobactam (Sod 3.375 gm/ Sodium Chloride) 50 mls @ 100 mls/hr IV Q6H [facility] Last Infusion: 08/07/22 09:56 Dose: Infused Vancomycin HCl 1,250 mg/ (Sodium Chloride) 250 mls @ 166.667 mls/hr IV Q12H [facility] Last Infusion: 08/07/22 06:27 Dose: Infused Lactic Acid (Ammonium Lactate 12 % Cream 140 Gm Tube) 1 appl TOPICAL BID [facility]; Protocol Last Admin: 08/07/22 13:20 Dose: Not Given Morphine Sulfate (Morphine Sulfate 4 Mg/Ml Cartridge) 4 mg IVPUSH Q4H PRN; Protocol PRN Reason: Pain, Severe (Pain Scale 7-10) Last Admin: 08/07/22 09:56 Dose: 4 mg Omeprazole (Omeprazole 20 Mg Capsule.) 20 mg PO BID [facility] Last Admin: 08/07/22 08:57 Dose: 20 mg Ondansetron HCl (Ondansetron Hcl 4 Mg/2 Ml Vial) 4 mg IVPUSH Q8H PRN PRN Reason: Nausea and Vomiting Oxycodone HCl (Oxycodone Hcl Immed Release 5 Mg Tablet) 5 mg PO Q3H PRN PRN Reason: Pain, Moderate(Pain Scale 4-6) Last Admin: 08/07/22 04:39 Dose: 5 mg Oxycodone HCl (Oxycodone Hcl Er 10 Mg Tab.Er.12h) 10 mg PO BID [facility] Last Admin: 08/07/22 08:56 Dose: 10 mg Pharmacy Consult (Consult Rx Perform Med Rec) 1 each MISCELLANE ONCE PRN PRN Reason: Consult order Pharmacy Consult (Consult Rx Vancomycin Dosing) 1 each MISCELLANE DAILY PRN PRN Reason: Consult order Pyridoxine HCl (Pyridoxine Hcl (Vitamin B6) 50 Mg Tablet) 50 mg PO DAILY [facility] Last Admin: 08/07/22 08:57 Dose: 50 mg Sodium Chloride (0.9 % Sodium Chloride Flush 3 Ml Syringe) 3 ml IVFLUSH QSHIFT [facility] Last Admin: 08/07/22 08:57 Dose: 3 ml Tamsulosin HCl (Tamsulosin Hcl 0.4 Mg Capsule) 0.4 mg PO DAILY [facility] Last Admin: 08/07/22 08:57 Dose: 0.4 mg Tolterodine Tartrate (Tolterodine Tartrate La 4 Mg Cap.Er.24h) 4 mg PO DAILY [facility] Last Admin: 08/07/22 08:55 Dose: 4 mg Home Medications Medication Instructions Recorded Confirmed Last Taken Type atorvastatin 40 mg tablet 40 mg PO DAILY 06/12/21 08/06/22 08/06/22 History clindamycin phosphate 1 % topical 1 appl topical DAILY 06/12/21 08/06/22 Unknown History solution doxazosin 4 mg tablet 4 mg PO DAILY 06/12/21 08/06/22 08/06/22 History furosemide 40 mg tablet 40 mg PO BID 06/12/21 08/06/22 08/06/22 History gabapentin 800 mg tablet 800 mg PO TID 06/12/21 08/06/22 08/06/22 History ipratropium 20 mcg-albuterol 100 1 puff PO QID wheezing 06/12/21 08/06/22 Unknown History mcg/actuation mist for inhalation (Combivent Respimat) lisinopril 40 mg tablet 40 mg PO DAILY 06/12/21 08/06/22 08/06/22 History tamsulosin 0.4 mg capsule 0.4 mg PO DAILY 06/12/21 08/06/22 08/06/22 History amlodipine 10 mg tablet 10 mg PO DAILY 07/24/21 08/06/22 08/06/22 History clonidine HCl 0.1 mg tablet 0.1 mg PO BID 07/24/21 08/06/22 08/06/22 History ferrous sulfate 325 mg (65 mg 325 mg PO DAILY 07/24/21 08/06/22 08/06/22 History iron) tablet (FeroSul) omeprazole 20 mg capsule,delayed 20 mg PO BID 07/24/21 08/06/22 08/06/22 History release albuterol sulfate 2.5 mg/3 mL 2.5 mg inhalation TID 08/06/22 08/06/22 08/06/22 History (0.083 %) solution for nebulization ammonium lactate 12 % topical cream 1 appl topical BID 08/06/22 08/06/22 08/06/22 History cyanocobalamin (vitamin B-12) 1,000 mcg PO DAILY 08/06/22 08/06/22 08/06/22 History 1,000 mcg tablet ergocalciferol (vitamin D2) 1,250 1,250 mcg PO MO 08/06/22 08/06/22 08/05/22 History mcg (50,000 unit) capsule oxycodone 10 mg tablet,crush 10 mg PO BID 08/06/22 08/06/22 08/06/22 History resistant,extended release 12 hr (OxyContin) Physical Exam Vital Signs: Vital Signs: Last Vital Signs Temp 97.5 F 08/07/22 09:08 Pulse 90 08/07/22 09:08 Resp 18 08/07/22 09:08 BP 134/61 08/07/22 09:08 Pulse Ox 95 08/07/22 09:08 O2 Del Method Room Air 08/07/22 09:08 O2 Flow Rate 2 08/06/22 17:19 BMI result Body Mass Index 75.3 Const: General: no acute distress and well developed Nutritional Appe arance: overweight (Morbidly obese) Orientation/consciousness: patient oriented x3 HEENT: Head: Yes normocephalic and Yes atraumatic Eyes: Conjunctivae: conjunctivae normal Neck: Neck: Yes normal visual inspection Chest: Chest palpation & inspection: normal inspection of the chest Resp: Effort & Inspection: normal respiratory effort Cardio: Rate: regular rate GI: Inspection: Yes normal to inspection Palpation (GI): Soft to palpation : Other: Scrotum mild swelling, indurated area superior portion of left side of scrotum, mild tenderness, no fluctuance palpated. Neuro: General: patient oriented x3 Extrem: Other: swelling noted Psych: Appearance: grossly normal Affect: normal affect Results Labs 08/07/22 06:26 08/07/22 06:26 Labs: Abnormal lab results 08/06/22 08/06/22 08/06/22 Range/Units 16:22 16:22 16:31 RBC 3.80 L (4.60-5.80) X10*6/uL Hgb 10.6 L (14.0-18.0) g/dl Hct 33.4 L (42.0-52.0) % Plt Count (160-400) X10*3/uL MPV 9.1 L (9.4-12.4) fL Immature Gran % (Auto) (0.0-0.4) % Neut % (Auto) 94.6 H (45-73) % Lymph % (Auto) 2.6 L (20-40) % Lymph # (Auto) 0.2 L (1.2-4.9) X10*3/uL Abs Immat Gran (auto) 0.04 H (0.00-0.03) X10*3/uL Absolute Neuts (auto) 8.8 H (2.0-8.3) x10*3/uL PT 13.3 H (10.0-13.1) SEC INR 1.2 H (0.9-1.1) VBG HCO3 (22-26) mmol/L Carbon Dioxide 21 L (22-29) mmol/L Anion Gap (12-20) BUN (9-16) mg/dL Calcium (8.4-10.2) mg/dL Total Bilirubin 1.4 H (0.0-1.0) mg/dL Direct Bilirubin 0.7 H (0.0-0.5) mg/dL Alkaline Phosphatase 170 H (39-117) U/L Ur Leukocyte Esterase (Negative) 08/06/22 08/06/22 08/06/22 Range/Units 16:38 20:33 Unknown RBC (4.60-5.80) X10*6/uL Hgb (14.0-18.0) g/dl Hct (42.0-52.0) % Plt Count (160-400) X10*3/uL MPV (9.4-12.4) fL Immature Gran % (Auto) (0.0-0.4) % Neut % (Auto) (45-73) % Lymph % (Auto) (20-40) % Lymph # (Auto) (1.2-4.9) X10*3/uL Abs Immat Gran (auto) (0.00-0.03) X10*3/uL Absolute Neuts (auto) (2.0-8.3) x10*3/uL PT (10.0-13.1) SEC INR (0.9-1.1) VBG HCO3 29 H (22-26) mmol/L Carbon Dioxide (22-29) mmol/L Anion Gap (12-20) BUN (9-16) mg/dL Calcium (8.4-10.2) mg/dL Total Bilirubin (0.0-1.0) mg/dL Direct Bilirubin (0.0-0.5) mg/dL Alkaline Phosphatase (39-117) U/L Ur Leukocyte Esterase Small (1+) H Moderate (2+) H (Negative) 08/07/22 08/07/22 Range/Units 06:26 06:26 RBC 3.10 L (4.60-5.80) X10*6/uL Hgb 8.7 L (14.0-18.0) g/dl Hct 27.3 L (42.0-52.0) % Plt Count 115 L D (160-400) X10*3/uL MPV (9.4-12.4) fL Immature Gran % (Auto) 0.6 H (0.0-0.4) % Neut % (Auto) 89.5 H (45-73) % Lymph % (Auto) 6.5 L (20-40) % Lymph # (Auto) 0.7 L (1.2-4.9) X10*3/uL Abs Immat Gran (auto) 0.06 H (0.00-0.03) X10*3/uL Absolute Neuts (auto) 8.9 H (2.0-8.3) x10*3/uL PT (10.0-13.1) SEC INR (0.9-1.1) VBG HCO3 (22-26) mmol/L Carbon Dioxide (22-29) mmol/L Anion Gap 9 L (12-20) BUN 18 H (9-16) mg/dL Calcium 8.3 L D (8.4-10.2) mg/dL Total Bilirubin (0.0-1.0) mg/dL Direct Bilirubin (0.0-0.5) mg/dL Alkaline Phosphatase (39-117) U/L Ur Leukocyte Esterase (Negative) Short CBC 08/06/22 08/07/22 Range/Units 16:31 06:26 WBC 9.3 10.0 (4.8-10.8) X10*3/uL Hgb 10.6 L 8.7 L (14.0-18.0) g/dl Hct 33.4 L 27.3 L (42.0-52.0) % Plt Count 194 115 L D (160-400) X10*3/uL BMP 08/06/22 08/07/22 16:22 06:26 Sodium 137 136 Potassium 4.0 4.4 Chloride 104 107 Carbon Dioxide 21 L 24 BUN 15 18 H Creatinine 1.08 1.22 Calcium 9.2 8.3 L D Liver Function 08/06/22 Range/Units 16:22 Total Bilirubin 1.4 H (0.0-1.0) mg/dL Direct Bilirubin 0.7 H (0.0-0.5) mg/dL AST 22 (5-37) U/L ALT 16 (0-40) U/L Alkaline Phosphatase 170 H (39-117) U/L Albumin 3.8 (3.5-5.0) g/dL Urine 08/06/22 08/06/22 Range/Units 20:33 Unknown Urine Color Dark Yellow Yellow Urine Appearance Clear Clear Urine pH 5.5 5.5 (5.0-9.0) Ur Specific [place] 1.025 1.015 (1.005-1.025) Urine Protein Trace Trace (Neg-Trace) mg/dL Urine Glucose (UA) Negative Negative (Negative) mg/dL All other labs normal. Assessment and Plan (1) Scrotal abscess: Status: Acute (2) Cellulitis: Status: Acute (3) Cellulitis of right lower extremity: Status: Acute Plan Scrotal abscess already has drained no further I and D necessary at this time Abx per ID Time Spent With Patient Time: Total time managing care of this patient today ____ minutes. Procedures Date of Service Date of Service: 08/09/22
[2022-08-07] MEDS: Docusate Sodium 100 MG CAPSULE PO (14:23)
[2022-08-07] MEDS: Acetaminophen 325 MG TABLET 650 MG PO (14:23)
--- NOTE | 2022-08-07 15:10 | PC.NURSE ---
Pt refusing to get OOB to chair and refusing afternoon and night doses of heparin. Education provided but pt insistent that he can't get OOB d/t pain and doesn't need additional doses of heparin.
[2022-08-07 15:45] VITALS: BP 138/63; PULSE 79; RESP 20; TEMP 36.3; O2SAT 96
--- NOTE | 2022-08-07 16:17 | P.CNID_ITS ---
History of Present Illness Data of Consult Service Date: 08/07/22 Requesting physician: Donnie Dasilva Primary Care Provider: Unknown Physician HPI Reason for consult: left scrotal abscess,cellulitis right leg He presents with left scrotal redness and purulence from one cm boil like lesion . He has this for two days. He also has right leg redness for two days. He has no fever or chills. He is on chronic bi Pap. Review of Systems Review of Systems: Yes all other systems are reviewed and are negative [facility] Past Medical History Medical History Frequency of urination and polyuria Hypertension Morbid obesity Renal calculi Renal calculi Urinary incontinence Family History Family history: reviewed and not pertinent Social History Social History Household Members: None Housing: Apartment Do you presently have visiting nurse or other home services: Yes (PRIMARY CARE PHYSICIAN and VNA) Alcohol intake: never Patient Tobacco Use Status: Former Tobacco user Quit Date: four years ago Years Smoked: 30 Substance Use Type: Marijuana service: No Meds Allergies Allergy/AdvReac Type Severity Reaction Status Date / Time aspartame AdvReac Headache Verified 08/06/22 15:53 Active Medications: Current Medications Acetaminophen (Acetaminophen 325 Mg Tablet) 650 mg PO Q6H PRN PRN Reason: Pain, Mild (Pain Scale 1-3) Last Admin: 08/07/22 14:23 Dose: 650 mg Albuterol Sulfate (Albuterol Sulfate (0.083%) 2.5 Mg/3 Ml Vial.Neb) 2.5 mg INHALE TID [facility] Last Admin: 08/07/22 07:59 Dose: Not Given Albuterol/Ipratropium (Albuterol/Iprat 2.5/0.5mg 3 Ml Ampul.Neb) 3 ml INHALE Q6H [facility] Last Admin: 08/07/22 07:59 Dose: Not Given Atorvastatin Calcium (Atorvastatin Calcium 40 Mg Tablet) 40 mg PO DAILY [facility] Last Admin: 08/07/22 08:57 Dose: 40 mg Cyanocobalamin (Cyanocobalamin (Vitamin B-12) 1,000 Mcg Tablet) 1,000 mcg PO DAILY [facility] Last Admin: 08/07/22 08:57 Dose: 1,000 mcg Docusate Sodium (Docusate Sodium 100 Mg Capsule) 100 mg PO DAILY PRN PRN Reason: Constipation Last Admin: 08/07/22 14:23 Dose: 100 mg Doxazosin Mesylate (Doxazosin Mesylate 2 Mg Tablet) 4 mg PO DAILY [facility]; Protocol Last Admin: 08/07/22 08:57 Dose: 4 mg Ergocalciferol (Ergocalciferol (Vitamin D2) 1,250 Mcg Capsule) 1,250 mcg PO MO [facility] Ferrous Sulfate (Ferrous Sulfate 324 Mg Tablet.) 324 mg PO DAILY [facility] Last Admin: 08/07/22 08:55 Dose: 324 mg Gabapentin (Gabapentin 400 Mg Capsule) 800 mg PO TID [facility] Last Admin: 08/07/22 14:23 Dose: 800 mg Heparin Sodium (Porcine) (Heparin Sodium,Porcine 5,000 Unit/Ml Vial) 5,000 unit SUBCUT Q8H [facility] Last Admin: 08/07/22 14:23 Dose: Not Given Piperacillin Sod/Tazobactam (Sod 3.375 gm/ Sodium Chloride) 50 mls @ 100 mls/hr IV Q6H [facility] Last Infusion: 08/07/22 15:01 Dose: Infused Vancomycin HCl 1,500 mg/ (Sodium Chloride) 500 mls @ 333.333 mls/hr IV Q12H [facility] Lactic Acid (Ammonium Lactate 12 % Cream 140 Gm Tube) 1 appl TOPICAL BID [facility]; Protocol Last Admin: 08/07/22 13:20 Dose: Not Given Morphine Sulfate (Morphine Sulfate 4 Mg/Ml Cartridge) 4 mg IVPUSH Q4H PRN; Protocol PRN Reason: Pain, Severe (Pain Scale 7-10) Last Admin: 08/07/22 09:56 Dose: 4 mg Omeprazole (Omeprazole 20 Mg Capsule.) 20 mg PO BID [facility] Last Admin: 08/07/22 08:57 Dose: 20 mg Ondansetron HCl (Ondansetron Hcl 4 Mg/2 Ml Vial) 4 mg IVPUSH Q8H PRN PRN Reason: Nausea and Vomiting Oxycodone HCl (Oxycodone Hcl Immed Release 5 Mg Tablet) 5 mg PO Q3H PRN PRN Reason: Pain, Moderate(Pain Scale 4-6) Last Admin: 08/07/22 14:23 Dose: 5 mg Oxycodone HCl (Oxycodone Hcl Er 10 Mg Tab.Er.12h) 10 mg PO BID [facility] Last Admin: 08/07/22 08:56 Dose: 10 mg Pharmacy Consult (Consult Rx Perform Med Rec) 1 each MISCELLANE ONCE PRN PRN Reason: Consult order Pharmacy Consult (Consult Rx Vancomycin Dosing) 1 each MISCELLANE DAILY PRN PRN Reason: Consult order Pyridoxine HCl (Pyridoxine Hcl (Vitamin B6) 50 Mg Tablet) 50 mg PO DAILY [facility] Last Admin: 08/07/22 08:57 Dose: 50 mg Sodium Chloride (0.9 % Sodium Chloride Flush 3 Ml Syringe) [facility] Last Admin: 08/07/22 15:06 Dose: Not Given Tamsulosin HCl (Tamsulosin Hcl 0.4 Mg Capsule) 0.4 mg PO DAILY [facility] Last Admin: 08/07/22 08:57 Dose: 0.4 mg Tolterodine Tartrate (Tolterodine Tartrate La 4 Mg Cap.Er.24h) 4 mg PO DAILY [facility] Last Admin: 08/07/22 08:55 Dose: 4 mg Home Medications Medication Instructions Recorded Confirmed Last Taken Type atorvastatin 40 mg tablet 40 mg PO DAILY 06/12/21 08/06/22 08/06/22 History clindamycin phosphate 1 % topical 1 appl topical DAILY 06/12/21 08/06/22 Unknown History solution doxazosin 4 mg tablet 4 mg PO DAILY 06/12/21 08/06/22 08/06/22 History furosemide 40 mg tablet 40 mg PO BID 06/12/21 08/06/22 08/06/22 History gabapentin 800 mg tablet 800 mg PO TID 06/12/21 08/06/22 08/06/22 History ipratropium 20 mcg-albuterol 100 1 puff PO QID wheezing 06/12/21 08/06/22 Unknown History mcg/actuation mist for inhalation (Combivent Respimat) lisinopril 40 mg tablet 40 mg PO DAILY 06/12/21 08/06/22 08/06/22 History tamsulosin 0.4 mg capsule 0.4 mg PO DAILY 06/12/21 08/06/22 08/06/22 History amlodipine 10 mg tablet 10 mg PO DAILY 07/24/21 08/06/22 08/06/22 History clonidine HCl 0.1 mg tablet 0.1 mg PO BID 07/24/21 08/06/22 08/06/22 History ferrous sulfate 325 mg (65 mg 325 mg PO DAILY 07/24/21 08/06/22 08/06/22 History iron) tablet (FeroSul) omeprazole 20 mg capsule,delayed 20 mg PO BID 07/24/21 08/06/22 08/06/22 History release albuterol sulfate 2.5 mg/3 mL 2.5 mg inhalation TID 08/06/22 08/06/22 08/06/22 History (0.083 %) solution for nebulization ammonium lactate 12 % topical cream 1 appl topical BID 08/06/22 08/06/22 08/06/22 History cyanocobalamin (vitamin B-12) 1,000 mcg PO DAILY 08/06/22 08/06/22 08/06/22 History 1,000 mcg tablet ergocalciferol (vitamin D2) 1,250 1,250 mcg PO MO 08/06/22 08/06/22 08/05/22 History mcg (50,000 unit) capsule levofloxacin 750 mg tablet 750 mg PO DAILY 08/06/22 08/06/22 08/06/22 History oxycodone 10 mg tablet,crush 10 mg PO BID 08/06/22 08/06/22 08/06/22 History resistant,extended release 12 hr (OxyContin) Physical Exam Vital Signs: Vital Signs: Last Vital Signs Temp 97.3 F 08/07/22 15:45 Pulse 79 08/07/22 15:45 Resp 20 08/07/22 15:45 BP 138/63 08/07/22 15:45 Pulse Ox 96 08/07/22 15:45 O2 Del Method Room Air 08/07/22 15:45 O2 Flow Rate 2 08/06/22 17:19 BMI result Body Mass Index 75.3 Const: Other: very high BMI HEENT: Head: Yes normal to inspection Face and sinus: Yes normal facial exam Mouth: Normal oral and palatal mucosa present Teeth and gingiva: dentition normal Eyes: General: appearance normal, both eyes and all related structures Pupils: Equal, round and reactive pupils present Resp: Effort & Inspection: normal respiratory effort Cardio: Rate: regular rate Rhythm: regular rhythm GI: Palpation (GI): Soft to palpation and nontender : Other: small one cm area pustule left scrotal area2 bilateral lower extremities venous stasis changes General: Yes no CVA tenderness Back/Spine/Pelvis: Back: no CVA tenderness Skin: General skin exam: no rashes or lesions noted Neuro: General: moves all extremities Cranial nerves: Yes Equal, round and reactive pupils present Extrem: General: Yes normal to inspection Psych: Appearance: grossly normal Results Labs 08/07/22 06:26 08/07/22 06:26 Labs: Short CBC 08/06/22 08/07/22 Range/Units 16:31 06:26 WBC 9.3 10.0 (4.8-10.8) X10*3/uL Hgb 10.6 L 8.7 L (14.0-18.0) g/dl Hct 33.4 L 27.3 L (42.0-52.0) % Plt Count 194 115 L D (160-400) X10*3/uL BMP 08/06/22 08/07/22 16:22 06:26 Sodium 137 136 Potassium 4.0 4.4 Chloride 104 107 Carbon Dioxide 21 L 24 BUN 15 18 H Creatinine 1.08 1.22 Calcium 9.2 8.3 L D Liver Function 08/06/22 Range/Units 16:22 Total Bilirubin 1.4 H (0.0-1.0) mg/dL Direct Bilirubin 0.7 H (0.0-0.5) mg/dL AST 22 (5-37) U/L ALT 16 (0-40) U/L Alkaline Phosphatase 170 H (39-117) U/L Albumin 3.8 (3.5-5.0) g/dL Urine 08/06/22 08/06/22 Range/Units 20:33 Unknown Urine Color Dark Yellow Yellow Urine Appearance Clear Clear Urine pH 5.5 5.5 (5.0-9.0) Ur Specific [place] 1.025 1.015 (1.005-1.025) Urine Protein Trace Trace (Neg-Trace) mg/dL Urine Glucose (UA) Negative Negative (Negative) mg/dL Microbiology Microbiology Results: Microbiology 08/06/22 20:33 Urine Catheterized - Villalobos Catheter Urine Culture - Preliminary No growth to date. Assessment and Plan (1) Cellulitis of right lower extremity: Status: Acute this is resolved He gives h/o chronic suppression with cefdroxil and has [place] [facility] [place] now is seeing [facility] ID (2) Scrotal abscess: Status: Acute Plan Discharge when improved on po Levaquin 750 mg daily for 14 days cover cellulitis and scrotal abscess Follow with ID at [facility] where he goes Time Spent With Patient Time: Total time managing care of this patient today ____ minutes.
[2022-08-07 17:25] VITALS: TEMP 37.8
[2022-08-07] MEDS: vancomycin HCL 1,500 MG in 0.9 % Sodium Chloride 500 ML 333.33 MG IV (17:25)
[2022-08-07 19:30] VITALS: BP 133/59; PULSE 76; RESP 17; TEMP 36.6; O2SAT 95
[2022-08-07] MEDS: Ammonium Lactate 12 % Cream 140 GM TUBE 1 APPL TOPICAL (20:29)
[2022-08-08] MEDS: Morphine Sulfate 4 MG/ML CARTRIDGE IVPUSH (02:08)
[2022-08-08] MEDS: Piperacillin Sodium/Tazobactam 3.375 GM in 0.9 % Sodium Chloride 50 ML IV ×2 (02:09→07:54)
[2022-08-08 03:15] VITALS: BP 106/51; PULSE 57; RESP 18; TEMP 36.8; O2SAT 96
[2022-08-08] MEDS: vancomycin HCL 1,500 MG in 0.9 % Sodium Chloride 500 ML 133.33 MG IV (04:59)
[2022-08-08 07:06] LABS: Creatinine Clr Calc Pharmacy 120.3; Estimated Glomerular Filt Rate 57
[2022-08-08 07:17] VITALS: BP 149/66; PULSE 89; RESP 20; TEMP 36.8; O2SAT 97
[2022-08-08 07:20] VITALS: BP 151/60; PULSE 90; RESP 20; TEMP 35.8; O2SAT 95
[2022-08-08] MEDS: oxyCODONE HCl ER 10 MG TAB.ER.12H PO (07:52)
[2022-08-08] MEDS: Omeprazole 20 MG CAPSULE.DR PO (07:52)
[2022-08-08] MEDS: 0.9 % Sodium Chloride Flush 3 ML SYRINGE IVFLUSH (07:52)
[2022-08-08] MEDS: Tamsulosin HCL 0.4 MG CAPSULE PO (07:53)
[2022-08-08] MEDS: Cyanocobalamin (Vitamin B-12) 1,000 MCG TABLET 1000 MCG PO (07:53)
[2022-08-08] MEDS: Ferrous Sulfate 324 MG TABLET.DR PO (07:53)
[2022-08-08] MEDS: Tolterodine Tartrate LA 4 MG CAP.ER.24H PO (07:53)
[2022-08-08] MEDS: Gabapentin 400 MG CAPSULE 800 MG PO (07:53)
[2022-08-08] MEDS: Doxazosin Mesylate 2 MG TABLET 4 MG PO (07:53)
[2022-08-08] MEDS: Pyridoxine HCl (Vitamin B6) 50 MG TABLET PO (07:54)
[2022-08-08] MEDS: Furosemide 40 MG TABLET PO (07:54)
[2022-08-08] MEDS: cloNIDine HCL 0.1 MG TABLET PO (07:54)
[2022-08-08] MEDS: Atorvastatin Calcium 40 MG TABLET PO (07:54)
[2022-08-08] MEDS: Ammonium Lactate 12 % Cream 140 GM TUBE 1 APPL TOPICAL (08:01)
[2022-08-08] MEDS: Heparin Sodium,Porcine 5,000 UNIT/ML VIAL 5000 UNIT SUBCUT (11:30)
--- NOTE | 2022-08-08 11:57 | PM.DS ---
DS: Providers Provider Date of Service: 08/08/22 Date of admission: 08/06/22 20:26 Date of discharge: 08/08/22 Primary care physician: Unknown Physician Consults: 08/06/22 20:27 Consult to Urology Routine Consulting Provider: Zacarias Eugene Reason for consultation: scrotal abscess Has provider been notified: Yes 08/07/22 06:42 Consult to Infectious Diseases Routine Consulting Provider: [facility] Infectious Disease Reason for consultation: chronic cellulitis Has provider been notified: No Attending physician on discharge: Donnie Dasilva Discharging clinician: Donnie Dasilva DS: Diagnosis Discharge Diagnosis (1) Cellulitis of right lower extremity: Status: Acute (2) Scrotal abscess: Status: Acute DS: Summary Hospital Course Hospital Course: 56-year-old male with past medical history of recurrent cellulitis, CVA per patient,? urinary incontinence,hypertension, hyperlipidemia, morbid obesity, reports chronic? cellulitis of the lower extremity presents the hospital with complaints of cellulitis of the right leg as well as abscess in his scrotum.? Patient reports that he has been on chronic antibiotics, but about 5 days ago his antibiotics were stopped because of fear of developing resistance as well as it wasnt working .? he reports that about a day ago he was taking a shower when he noticed a? lump in his scrotum and today he started developing significant pain swelling and redness in his right leg and he knew he has cellulitis therefore came to the hospital.? He describes the pain as 10/10, not tolerating it well, feeling significant fever, he has chills, diaphoretic.? denies any chest pain, no shortness of breath, no abdominal pain diarrhea constipation, no urinary symptoms no other acute abnormality or complaint. ? On arrival to the ED patient found to have a fever of 102.6, otherwise stable Labs are significant for WBC count of 9.3, labs otherwise unremarkable, ?scrotum ultrasound showed? left scrotal wall? thickening with 1.2x0.4x1.3 cm hypoechoic area in the scrotal wall ?patient started on IV antibiotics will be admitted for further management. hospital course: Patient came to the hospital -admitted for right lower leg cellulitis as well as labs and patient was started on IV antibiotics and blood cultures sent. With IV antibiotic patient the sacral cellulitis area seems to be improving and as per patient abscess self drained , seen by Urology, recommended -recommended to treat with antibiotics, no further intervention. Patient is afebrile, no leukocytosis, no fever, will consider negative at 24 hours. Patient seen by infectious disease recommended p.o. Levaquin for 2 weeks. Patient will follow-up in [facility]. patient refuses to go to rehab. Patient has home [employer] services as per patient will resume that upon discharge. Above management discussed with patient in detail and he understand and in agreement with the above plan, time spent 50 minute. Time Spent with Patient Time attestation: Total time managing care of this patient today ____ minutes. Discharge coordination time: Greater than 30 minutes Quality: Safe Use of Opioids Does Pt have an Active Cancer Diagnosis on the Problem List?: No Quality: Stroke Does the patient have a stroke diagnosis?: No Physical Exam Vital Signs: Vital Signs: Last Vital Signs Temp 96.5 F L 08/08/22 07:20 Pulse 90 08/08/22 07:20 Resp 20 08/08/22 07:20 BP 151/60 H 08/08/22 07:20 Pulse Ox 95 08/08/22 07:20 O2 Del Method Nasal Cannula 08/08/22 07:20 O2 Flow Rate 2 08/08/22 07:20 BMI result Body Mass Index 75.3 Appearance: Alert.? Oriented X3.? not in distress.? cvs: rrr, [id number] , no murmur res: clear to auscultation ,no rhonchii or wheezing abd: no rebound or guarding ,nt, bs present. ext : right lower extremity, around the groin/ thigh and scrotal -erythema ,swelling imporoved significantly, no flacutation in scrotal area ,scrotal abcess area is flat -no erythema or discharge. neuro: axo3 , nonfocal. DS: Data Data Completed and Pending Labs on day of discharge: Laboratory Results - last 24 hr 08/07/22 08/08/22 15:09 05:20 Creatinine 1.30 Estim Creat Clear Calc 120.3 Estimated GFR 57 Random Vancomycin 10.0 L Preliminary micro results at discharge 08/06/22 19:47 Blood Culture - Preliminary Blood - Venous No growth after 24 hours. 08/06/22 19:47 Blood Culture - Preliminary Blood - Venous No growth after 24 hours. Imaging Chest x-ray: Radiologist's impression: ITS Impressions Chest X-Ray 08/06/22 16:10 IMPRESSION: Mild cardiomegaly with increased bilateral parahilar interstitial markings question pneumonitis versus mild congestion. No acute consolidation seen. Scrotum Ultrasound 08/06/22 17:44 IMPRESSION: 1. The testes are very heterogeneous in echotexture but no discrete mass is seen and they do not appear hyperemic. 2. The left scrotal wall is thickened with a 1.2 x 0.4 x 1.3 cm hypoechoic area in the scrotal wall. Given the history of an abscess, this certainly would be compatible with that diagnosis. Discharge Plan Discharge Anticipated Discharge Date/Time: 08/08/22 11:48 Patient Disposition: Home, Self-Care Discharge Diagnosis: Scrotal cellulitis and possible abscess. Referrals: Physician,Unknown J [Primary Care Provider] - 1 Week Discharge Medications: Continued solifenacin [Vesicare] 10 mg tablet 10 mg PO DAILY Qty: 90 1RF pyridoxine (vitamin B6) 50 mg tablet 50 mg PO DAILY 30 Days Qty: 30 1RF albuterol sulfate 2.5 mg /3 mL (0.083 %) solution for nebulization 2.5 mg inhalation TID cyanocobalamin (vitamin B-12) 1,000 mcg tablet 1,000 mcg PO DAILY ammonium lactate 12 % cream 1 appl topical BID ergocalciferol (vitamin D2) 1,250 mcg (50,000 unit) capsule 1,250 mcg PO MO oxycodone [OxyContin] 10 mg tablet,oral only,ext.rel.12 hr 10 mg PO BID levofloxacin 750 mg tablet 750 mg PO DAILY Qty: 14 0RF clindamycin phosphate 1 % solution 1 appl topical DAILY gabapentin 800 mg tablet 800 mg PO TID furosemide 40 mg tablet 40 mg PO BID tamsulosin 0.4 mg capsule 0.4 mg PO DAILY atorvastatin 40 mg tablet 40 mg PO DAILY lisinopril 40 mg tablet 40 mg PO DAILY doxazosin 4 mg tablet 4 mg PO DAILY Combivent Respimat 20-100 mcg/actuation mist 1 puff PO QID clonidine HCl 0.1 mg tablet 0.1 mg PO BID omeprazole 20 mg capsule,delayed release(DR/EC) 20 mg PO BID amlodipine 10 mg tablet 10 mg PO DAILY ferrous sulfate [FeroSul] 325 mg (65 mg iron) tablet 325 mg PO DAILY Discharge Orders: Discharge Order (Routine); Ordered 08/08/22 Ordered By: Donnie Dasilva Diet: Advance to usual diet Activity on Discharge: As tolerated Stand Alone Forms: Patient Portal Discharge page, Work/School Release Care Plan Goals: Patient came to the hospital -admitted for right lower leg cellulitis as well as labs and patient was started on IV antibiotics and blood cultures sent. With IV antibiotic patient the sacral cellulitis area seems to be improving and as per patient abscess self drained , seen by Urology, recommended -recommended to treat with antibiotics, no further intervention. Patient is afebrile, no leukocytosis, no fever, will consider negative at 24 hours. Patient seen by infectious disease recommended p.o. Levaquin for 2 weeks. Patient will follow-up in [facility] outpatient. Patient has home [employer] services as per patient will resume that upon discharge. Health Concerns: As above. Plan of Treatment: As above. Assessment: As above. Patient Instructions: Cellulitis (DC)
--- NOTE | 2022-08-08 12:08 | MHC.CM.PN ---
DP: PT HAS BEEN MEDICALLY CLEARED FOR DC HOME WITH RESUMPTION OF [employer] THROUGH INSURANCE. PT AWARE AND AGREEABLE TO PLAN. BLS TRANSPORT BOOKED FOR 12:30 PM [facility]IA [facility]. RN AWARE.
== END 2022-08-08 12:40 | disposition home or self-care (01) | DRG 383 ==
LOC: HO.ED 18:14 → HO.EDOVER 21:25 → HO.S3 08-07 07:37
PROVIDERS: Emergency Medicine; Admitting Provider Internal Medicine; Emergency Provider Emergency Medicine; PCP Nurse Practitioner Family; Visit Provider Internal Medicine
DX: L03.115 Cellulitis of right lower limb (principal); Z68.45 Body mass index [BMI] 70 or greater, adult; L03.116 Cellulitis of left lower limb; N49.2 Inflammatory disorders of scrotum; E66.01 Morbid (severe) obesity due to excess calories; E78.5 Hyperlipidemia, unspecified; I10 Essential (primary) hypertension; Z87.891 Personal history of nicotine dependence; Z79.2 Long term (current) use of antibiotics; Z79.899 Other long term (current) drug therapy
CPT/HCPCS: 36415; 71045; 76870; 80048; 80076; 80202; 81001; 81003; 82565; 82803; 83605; 83880; 85025; 85610; 87040; 87086; 97161; 99285; J1170; J1643; J2270; J2543; J3370; J3371